=== PATIENT | female | born 1995 | race Caucasian/White ===

== ENCOUNTER 2021-12-04 18:35 | Emergency (ER) | payer MEDICAID ==
[~2021-12-04] VITALS: Ht 160 cm; Wt 80.9 kg
[2021-12-04 19:52] VITALS: BP 108/70
== END 2021-12-04 21:29 | disposition left against medical advice (07) ==
LOC: ER 18:35
DX: Z53.21 Procedure and treatment not carried out due to patient leaving prior to being seen by health care provider (principal)

== ENCOUNTER 2021-12-06 04:01 | Inpatient (IN) | payer MEDICAID, OTHER ==
[~2021-12-06] VITALS: Ht 162.6 cm; Wt 74.4 kg
[2021-12-06] MEDS ORDERED: PRENATAL VITAMINS (04:35)
[2021-12-06] MEDS ORDERED: LACTATED RINGERS 1,000 ML IV ONE (04:45)
[2021-12-06] MEDS: ACETAMINOPHEN 500MG TABLET PO PRN ×4 (05:01→21:21)
[2021-12-06] MEDS: ONDANSETRON HCL 4MG/2ML INJ IV PRN ×2 (05:01→21:21)
[2021-12-06] MEDS ORDERED: CEFAZOLIN 2,000 MG in DEXT 5% WATER 100 ML IV SCH (05:30)
[2021-12-06] MEDS: LACTATED RINGERS 1,000 ML IV SCH ×3 (05:37→15:50)
[2021-12-06 05:51] LABS: CHLORIDE 105 mEq/L (98-107)
[2021-12-06 05:55] LABS: CLARITY URINE CLOUDY (CLEAR); COLOR URINE DARK YELLOW (YELLOW); KETONES URINE 2+ (NEGATIVE); LEUKOCYTE ESTERASE URINE 3+ (NEGATIVE); NITRITE URINE POSITIVE (NEGATIVE); OCCULT BLOOD URINE 1+ (NEGATIVE); PROTEIN URINE 2+ (NEGATIVE); SPECIFIC GRAVITY URINE 1.016 (1.005-1.030)
[2021-12-06 06:00] LABS: BASOPHILS % 0.3 % (0.0-2.0); EOSINOPHILS % 0.3 % (0.0-5.0); MEAN CORPUSCULAR HEMOGLOBIN 31.7 pg (28.0-32.0); MEAN CORPUSCULAR VOLUME 91.8 fL (81.0-99.0); MEAN PLATELET VOLUME 8.5 fl (7.4-10.4); NEUTROPHILS % 78.4 % (40.0-76.0); PLATELET 222 x1000/uL (130-400); RED BLOOD CELL COUNT 3.49 mill/uL (4.2-5.4); RED CELL DISTRIBUTION WIDTH 13.5 % (11.6-14.6)
[2021-12-06] MEDS: AMPICILLIN 1,000 MG in SODIUM CHLORIDE 0.9% 50 ML IV SCH ×3 (09:59→22:28)
[2021-12-06] MEDS ORDERED: WATER IV SCH (10:00)
[2021-12-06] MEDS ORDERED: GENTAMICIN SULFATE IV SCH (10:00)
[2021-12-06] MEDS ORDERED: DEXT 5% IV SCH (10:00)
[2021-12-06] MEDS ORDERED: LIDOCAINE HCL 1% 20ML VIAL (Pyxis) INJ ONE (18:09)
[2021-12-06] MEDS: GENTAMICIN 120MG PREMIX 100 ML IV SCH (18:31)
[2021-12-07] MEDS: LACTATED RINGERS 1,000 ML IV SCH ×3 (01:35→20:42)
[2021-12-07] MEDS: ACETAMINOPHEN 500MG TABLET PO PRN ×3 (01:45→19:45)
[2021-12-07] MEDS: AMPICILLIN 1,000 MG in SODIUM CHLORIDE 0.9% 50 ML IV SCH ×5 (03:57→22:10)
[2021-12-07] MEDS: GENTAMICIN 120MG PREMIX 100 ML IV SCH ×2 (05:57→17:50)
[2021-12-07] MEDS: PRENATAL VIT/FE FUMARATE/FA TABLET PO SCH (11:44)
[2021-12-08] MEDS: AMPICILLIN 1,000 MG in SODIUM CHLORIDE 0.9% 50 ML IV SCH ×4 (03:57→22:27)
[2021-12-08] MEDS: GENTAMICIN 120MG PREMIX 100 ML IV SCH (05:46)
[2021-12-08] MEDS: LACTATED RINGERS 1,000 ML IV SCH ×2 (05:46→14:39)
[2021-12-08 07:11] LABS: BASOPHILS % 0.1 % (0.0-2.0); EOSINOPHILS % 0.2 % (0.0-5.0); HEMATOCRIT. 27.3 % (36.0-48.0); HEMOGLOBIN. 9.6 g/dL (12.0-16.0); LYMPHOCYTES % 11.3 % (20.0-50.0); MEAN CORPUSCULAR HEMOGLOBIN 31.8 pg (28.0-32.0); MEAN CORPUSCULAR VOLUME 90.5 fL (81.0-99.0); MEAN PLATELET VOLUME 8.7 fl (7.4-10.4); MONOCYTES % 11.5 % (2.0-8.0); NEUTROPHILS % 76.9 % (40.0-76.0); PLATELET 187 x1000/uL (130-400); RED BLOOD CELL COUNT 3.02 mill/uL (4.2-5.4); RED CELL DISTRIBUTION WIDTH 13.5 % (11.6-14.6)
[2021-12-08 07:13] LABS: CHLORIDE 103 mEq/L (98-107)
[2021-12-08 07:21] LABS: GENTAMICIN RANDOM <0.2 ug/mL ug/mL
[2021-12-08] MEDS: PRENATAL VIT/FE FUMARATE/FA TABLET PO SCH (08:59)
[2021-12-08] MEDS: GENTAMICIN 100MG PREMIX 50 ML IV SCH ×2 (14:00→21:55)
[2021-12-09] MEDS: LACTATED RINGERS 1,000 ML IV SCH ×3 (01:00→20:01)
[2021-12-09] MEDS: AMPICILLIN 1,000 MG in SODIUM CHLORIDE 0.9% 50 ML IV SCH ×4 (04:01→22:38)
[2021-12-09] MEDS: GENTAMICIN 100MG PREMIX 50 ML IV SCH ×3 (05:55→23:02)
[2021-12-09 08:17] LABS: CHLORIDE 105 mEq/L (98-107)
[2021-12-09] MEDS: PRENATAL VIT/FE FUMARATE/FA TABLET PO SCH (09:57)
[2021-12-10] MEDS: AMPICILLIN 1,000 MG in SODIUM CHLORIDE 0.9% 50 ML IV SCH ×2 (04:12→10:09)
[2021-12-10] MEDS: GENTAMICIN 100MG PREMIX 50 ML IV SCH (05:52)
[2021-12-10 07:58] LABS: CHLORIDE 102 mEq/L (98-107); GENTAMICIN RANDOM 6.4 ug/mL
[2021-12-10] MEDS: LACTATED RINGERS 1,000 ML IV SCH (10:09)
[2021-12-10] MEDS ORDERED: NITR50CA4 MT (12:07)
== END 2021-12-10 13:00 | disposition home or self-care (01) | DRG 566 ==
LOC: UNDOADMOB 04:01 → OBSVTOIN 04:01 → INTOOBSV 04:01 → 8 EST LDRP 04:01 → 8 EST A/PP 09:30 → 8 EST LDRP 09:30
PROVIDERS: ADMIT Obstetrics & Gynecology; ATTEND Obstetrics & Gynecology
DX: O23.02 Infections of kidney in pregnancy, second trimester (principal); O99.012 Anemia complicating pregnancy, second trimester; Z20.822 Contact with and (suspected) exposure to COVID-19; Z90.49 Acquired absence of other specified parts of digestive tract; Z3A.23 23 weeks gestation of pregnancy
CPT/HCPCS: 36415; 76770; 76805; 80048; 80053; 80170; 81003; 85025; 87426; 96360; 96361; 96365; 99281; G0378; J0290; J0690; J1580; J2405; J3490; J7060; J7120

== ENCOUNTER 2023-09-26 21:46 | Emergency (ER) | payer MEDICAID, OTHER ==
[~2023-09-26] VITALS: Ht 157.5 cm; Wt 95.0 kg
[~2023-09-26 21:46] MED LIST: NITR50CA4 MT; PRENATAL VITAMINS
[2023-09-26 22:12] VITALS: O2SAT 99
[2023-09-26] MEDS ORDERED: AMOX-494 MT (22:45)
[2023-09-26 23:22] VITALS: BP 118/82; PULSE 87; RESP 20; TEMP 98.5
== END 2023-09-26 23:28 | disposition home or self-care (01) ==
LOC: ER 21:46
DX: H66.91 Otitis media, unspecified, right ear (principal)
CPT/HCPCS: 99283